=== PATIENT | female | born 1950 | race Caucasian/White ===

== ENCOUNTER → 2017-09-04 | Outpatient (CLI) | payer OTHER ==
[~2017-09-04] MED LIST: ATORVASTATIN CA80 MG PO; ERGOCALCIF50000 UNIT PO; LISINOPRIL40 MG PO; LO-DOSE ASPIRIN81 M2 PO; NAPROSYN500 MG PO; NORCO 5/3251 TABLET PO; PIOGLITAZONE HC30 MG PO; STOOL SOFTENER240 MG PO
== END | disposition home or self-care (01) ==
DX: M17.12 Unilateral primary osteoarthritis, left knee (principal); R26.2 Difficulty in walking, not elsewhere classified; M25.562 Pain in left knee; M25.662 Stiffness of left knee, not elsewhere classified; M62.81 Muscle weakness (generalized)
CPT/HCPCS: 97161 GP; 97165 GO; 97530 GP; 97535 GO; G8978 GP; G8979 GP; G8980 GP; G8984 GO; G8985 GO; G8986 GO

== ENCOUNTER 2017-09-16 21:56 | Inpatient (IN) | payer OTHER ==
[~2017-09-16] VITALS: Ht 152.4 cm; Wt 82.6 kg
[~2017-09-16 21:56] MED LIST changes: +DAILY VALUE1 EACH PO; +IRON325 M1 PO; +MICROZIDE12.5 M1 PO
[2017-09-17 07:12] VITALS: BP 172/74
[2017-09-17 12:19] LABS: HEMATOCRIT 35.5 % (36.0-46.0); HEMOGLOBIN 11.4 G/DL (11.9-15.5); MCH 29.9 PG (29.0-34.0); MCHC 32.1 G/DL (30.0-36.0); MCV 93.2 FL (83-99); PLATELET COUNT 123 K/uL (156-360); RBC DIS.WIDTH-CV 15.6 % (11.8-14.6); RBC DIS.WIDTH-SD 53.5 % (39-53); RED BLOOD COUNT 3.81 M/uL (3.80-5.20); WHITE BLOOD COUNT 4.4 K/uL (4.1-10.2)
[2017-09-17 13:02] VITALS: BP 124/58
[2017-09-17 16:03] VITALS: BP 116/56
[2017-09-17 20:18] VITALS: BP 114/56
[2017-09-18 00:26] VITALS: BP 120/59
[2017-09-18 04:10] VITALS: BP 113/54
[2017-09-18 06:17] LABS: HEMOGLOBIN 10.1 G/DL (11.9-15.5); MCV 93.3 FL (83-99)
[2017-09-18 06:27] LABS: CHLORIDE 106 MEQ/L (99-109); CREATININE 0.6 MG/DL (0.6-1.3); GFR ESTIMATE (CALCULATED) > 59 mL/min/; GLUCOSE 179 mg/dL (70-99); POTASSIUM 4.1 MEQ/L (3.7-5.4); SODIUM 139 MEQ/L (136-147); UREA NITROGEN (BUN) 15 mg/dL (9-23)
[2017-09-18 08:30] VITALS: BP 122/60
[2017-09-18 11:52] VITALS: BP 116/54
[2017-09-18 15:46] VITALS: BP 110/53
[2017-09-19 01:06] VITALS: BP 130/61
[2017-09-19 04:25] VITALS: BP 115/56
[2017-09-19 06:00] LABS: HEMATOCRIT 31.2 % (36.0-46.0); HEMOGLOBIN 9.9 G/DL (11.9-15.5); MCV 92.9 FL (83-99)
[2017-09-19 08:00] VITALS: BP 130/60
[2017-09-19] MEDS ORDERED: METHOCARBAMOL500 MG PO (08:43)
[2017-09-19] MEDS ORDERED: LOVENOX40 MG/0.4 SC (08:43)
[2017-09-19] MEDS ORDERED: ENDOCET 5-3251 EACH PO (08:43)
[2017-09-19 12:02] VITALS: BP 115/53
== END 2017-09-19 15:05 | DRG 470 ==
LOC: ENRESERV 21:56 → 2SOUTH 09-17 06:42 → 3WEST 09-17 12:43 → 2SOUTH 09-17 14:46 → 3WEST 09-19 07:33
PROVIDERS: Orthopaedic Surgery
PROC: 0SRD0J9 Replacement of Left Knee Joint with Synthetic Substitute, Cemented, Open Approach (ICD-10-PCS; principal; 2017-09-17)
DX: M17.12 Unilateral primary osteoarthritis, left knee (principal); E78.00 Pure hypercholesterolemia, unspecified; Z90.710 Acquired absence of both cervix and uterus; Z85.818 Personal history of malignant neoplasm of other sites of lip, oral cavity, and pharynx; I10 Essential (primary) hypertension; E11.9 Type 2 diabetes mellitus without complications; Z79.82 Long term (current) use of aspirin; Z79.4 Long term (current) use of insulin
CPT/HCPCS: 73560; 80048; 82948; 85014; 85018; 85027; 93971; C1713; J0131; J0330; J0690; J1100; J1170; J1650; J1815; J2250; J2405; J2795; J7050